=== PATIENT | female | born 1985 | race Caucasian/White ===

== ENCOUNTER 2016-12-26 01:01 | Inpatient (IN) | payer BC ==
--- OUTSIDE RECORDS SUMMARY | 2016-12-26 01:04 | XMS | Clinical Summary ---
:1985 Author Organization [facility] Address [address] [place] [address] Phone Care Team Providers Name Role Phone , Primary Care Provider Unavailable Allergies Not on File Current Medications Not on file Active Problems Not on file Social History Tobacco Use Types Packs/Day Years Used Date Never Assessed Sex Assigned at Date Recorded Not on file Last Filed Vital Signs Not on file Plan of Treatment Not on file Results Not on filefrom Last 3 Months
[2016-12-26] MEDS ORDERED: Bisacodyl 5 MG TAB PO PRN (02:55)
[2016-12-26] MEDS ORDERED: Ondansetron HCl/PF 4 MG/2 ML Vial IVP PRN (02:55)
[2016-12-26] MEDS ORDERED: Acetaminophen 325 MG TAB PO PRN (02:55)
[2016-12-26] MEDS: Sodium Chloride 0.9% 1,000 ML IV SCH ×3 (03:10→23:47)
--- NOTE | 2016-12-26 04:22 | HP ---
PRIMARY CARE PROVIDER: Radha Concepcion M.D. CHIEF COMPLAINT: Nausea and vomiting. HISTORY OF PRESENT ILLNESS: Ms. Jones is a pleasant 31-year-old lady who was seen at [facility] following transfer from [facility] Emergency Department on 12/26/2016. She reports that she has a history of recurrent vomiting. She also reports that she feels thirsty a ll the time. She reports that she had extensive workup in the past, including by Endocrinology, Car diology, and Neurology services, but it cause for her thirst and nausea were not found. She reports that she was eating salt tablets because of intense craving. She reports that most of the times her electrolytes are towards the lower end of normal range. Two weeks ago, she was seen at an urgent care clinic for excessive thirst. Today afternoon, around 3:30 p.m., she developed nausea and vomiting. She reports vomiting multiple times. She denies any blood in the vomitus. She denies any fevers. She reports feeling cold and shaky. She also reports occasional leg cramps, but none today. She denies any chest pain or shortn ess of breath. At the other emergency department, she received intravenous fluids. However, she was very tachycard ic. Her tachycardia did not improve significantly with intravenous fluids. She was therefore trans ferred to this facility. REVIEW OF SYSTEMS: The following complete review of systems was negative, unless otherwise mentione d in the HPI or below: Constitutional: Weight loss or gain, sense of well-being, ability to conduct usual activities, exer cise tolerance. Skin/Breast: Rash, itching, changes in hair growth or loss, nail changes, breast lumps, tenderness, swelling, nipple discharge. Eyes: Vision, double vision, tearing, blind spots, pain. ENT/Mouth: Headaches (location, time of onset, duration, precipitating factors), vertigo, lighthead edness, injury. Vision, double vision, tearing, blind spots, pain, nose bleeding, colds, obstruction , discharge, dental difficulties, gingival bleeding, dentures, neck stiffness, pain, tenderness, mas ses in thyroid or other areas. Cardiovascular: Precordial pain, substernal distress, palpitations, syncope, dyspnea on exertion, o rthopnea, nocturnal paroxysmal dyspnea, edema, cyanosis, hypertension, heart murmurs, varicosities, phlebitis, claudication. Respiratory: Pain, shortness of breath, wheezing, stridor, cough, hemoptysis, fever or night sweats . Gastrointestinal: Poor appetite, dysphagia, indigestion, abdominal pain, heartburn, eructation, eunice sea, vomiting, hematemesis, jaundice, constipation, or diarrhea, abnormal stools (jamie-colored, sumaya y, bloody, greasy, foul smelling), flatulence, hemorrhoids, recent changes in bowel habits. Genitourinary: Urgency, frequency, dysuria, nocturia, hematuria, polyuria, oliguria, unusual (or ch henry in) color of urine, stones, hesitancy, change in size of stream, dribbling, acute retention or incontinence, libido, potency. Musculoskeletal: Pain, swelling, redness or heat of muscles or joints, limitation, of motion, muscu lar weakness, atrophy, cramps. Neurologic/Psychiatric: Convulsions, paralyses, tremor, incoordination, paresthesias, difficulties with memory of speech, sensory or motor disturbances, or muscular coordination (ataxia, tremor), emo tional problems, anxiety, depression, previous psychiatric care, unusual perceptions, hallucinations . Allergy/Immunologic: Skin rash, anemia, bleeding tendency, polydipsia, polyuria, intolerance to hea t or cold. PAST MEDICAL HISTORY: None. PAST SURGICAL HISTORY: Tonsillectomy and foot surgery x2. SOCIAL HISTORY: The patient reports rare alcohol use. She denies tobacco use or recreational drug use. FAMILY HISTORY: Significant for heart disease in her paternal grandfather. ALLERGIES: CODEINE, which causes nausea and vomiting. CURRENT MEDICATIONS: Zofran p.r.n. PHYSICAL EXAMINATION: GENERAL: On examination, Ms. Jones is awake and alert, not in acute distress. VITAL SIGNS: Blood pressure is 106/59, pulse is 108. She is breathing at rate of 18, and saturatin g 97% on room air. Temperature is 99.7 degrees Fahrenheit. EYES: No scleral icterus, no conjunctival pallor. ENT: Dry mucosal membranes, no oropharyngeal erythema or exudates. NECK: Supple, nontender, normal range of movement, trachea is midline. RESPIRATORY: Accessory muscles of breathing are not active. Chest wall movements are symmetric colt aterally. LUNGS: Clear to auscultation without wheeze, rhonchi or crepitations. CARDIOVASCULAR: S1 and S2 are heard, regular. Peripheral pulses are palpable. No carotid bruit, n o pericardial rub. ABDOMEN: Soft, nontender, bowel sounds are heard, no hepatomegaly, no splenomegaly. SKIN: No rashes or subcutaneous nodules. NEUROLOGIC: Cranial nerves II-XII are intact, deep tendon reflexes 2+. MUSCULOSKELETAL: Power is 5/5 in all 4 extremities. Normal range of movement at all major extremit y joints. PSYCHIATRIC: Normal mood, normal affect, patient is oriented to time, place, and person. DATABASE: Ms. Jones' labs and investigations were reviewed. She had an electrocardiogram at the [facility] emergency room, which did not show any ST changes. She did have sinus tachycardia. Laboratory investigations showed sodium 133, potassium 3.7, glucose 128, calcium 9.7, creatinine 0.8 , alkaline phosphatase 38, ALT 16, AST 27, and total bilirubin 1.0. Urinalysis was positive for ket ones and protein. Urine hCG was negative. She had white count of 13,800, hemoglobin 14.3 and plate let count 228,000. ASSESSMENT AND PLAN: Ms. Jones is a pleasant 31-year-old lady who was seen at [facility] on 12/26/2016. Her problem list includes: 1. Nausea and vomiting. Etiology is unclear. She reports having it on and off over many months to years. We will admit her to the hospital and managed with antiemetics. We will obtain records fro m primary care provider's office to find out what has already been done and to guide further investi gations. 2. Dehydration: Provide intravenous fluids. 3. Sinus tachycardia: Her heart rate has actually improved since coming to this facility. We will continue to monitor on telemetry and provide intravenous fluids. 4. Ketonuria: Most likely secondary to starvation. LEVEL OF RISK: Moderate. LEVEL OF COMPLEXITY: Moderate. Many thanks for allowing me to participate in your patient's care. Please feel free to contact me w ith any questions or concerns.
[2016-12-26 06:09] LABS: #Lymphocytes 0.5 thou/uL (1.20-3.40); #Monocytes 0.6 thou/uL (0.11-0.59); #Neutrophils 8.7 thou/uL (1.40-6.50); %Basophils 0.1 % (0.0-1.0); %Eosinophils 0.1 % (0.0-10.0); %Lymphocytes 5.4 % (21.0-51.0); %Monocytes 5.6 % (0.0-10.0); Hematocrit 35.6 % (36.0-47.0); Mean Platelet Volume 6.8 fL (7.4-10.4); Red Blood Cell (RBC) Count 3.84 mill/uL (4.20-5.40); White Blood Cell (WBC) Count 9.8 thou/uL (4.8-10.8)
[2016-12-26 06:33] LABS: Anion Gap 10 mmol/L (10-20); BUN (Urea Nitrogen) 9 mg/dL (7.0-18.7); Calc. Creatinine Clearance 97 mL/min (70-130); Calcium 8.1 mg/dL (7.8-10.44); Carbon Dioxide 25 mmol/L (22-29); Chloride 106 mmol/L (98-107); Estimated GFR-MDRD Greater than 90
[2016-12-26] MEDS ORDERED: FLU VACC QS2017-18 36 mo. & older 0.5 ML SYRINGE IM ONE (09:00)
[2016-12-26] MEDS: Enoxaparin Sodium 40 MG/0.4 ML SYRINGE SC SCH (09:11)
--- NOTE | 2016-12-26 12:17 | PDOC.PN ---
- Subjective Encounter Start Date: 12/26/16 Encounter Start Time: 12:00 Subjective: f/u for N/V and dehydration tx with IVF's. Pt states the emesis resolved -: and is wanting to eat. No diarrhea, fever. Some tachycardia on tele. - Objective MAR Reviewed: Yes Vital Signs & Weight: Vital Signs (12 hours) Temp Pulse Resp BP Pulse Ox 12/26/16 08:00 99.3 F 103 H 14 101/58 L 95 12/26/16 06:00 91/50 L 12/26/16 03:31 98.6 F 99 16 98 12/26/16 01:15 99.7 F H 108 H 18 106/59 L 97 Weight Weight 115 lb 4.8 oz I&O: 12/25/16 12/26/16 12/27/16 06:59 06:59 06:59 Intake Total 450 Output Total 500 Balance -50 Result Diagrams: 12/26/16 05:24 12/26/16 05:24 EKG Reviewed by me: Yes (Tele - Sinus tachycardia) Phys Exam - Physical Examination Constitutional: NAD alert, responsive HEENT: PERRLA, oral pharynx no lesions Neck: no JVD, supple Respiratory: no wheezing, clear to auscultation bilateral tachycardic Cardiovascular: RRR Gastrointestinal: soft, non-tender, no distention, positive bowel sounds Musculoskeletal: no edema, pulses present Neurological: normal sensation, moves all 4 limbs Psychiatric: A&O x 3 Skin: normal turgor, cap refill <2 seconds Dx/Plan (1) Nausea and vomiting Code(s): R11.2 - NAUSEA WITH VOMITING, UNSPECIFIED Status: Acute Comment: Resolved, antiemetics prn, continue IVF's another 24h then d/c (2) Dehydration Code(s): E86.0 - DEHYDRATION Status: Acute Comment: Resolved (3) Sinus tachycardia Code(s): R00.0 - TACHYCARDIA, UNSPECIFIED Status: Acute Comment: Suspect volume related, check TSH and FT4 - Plan Stable overall -: Continue supportive measures -: Start Regular Diet -: Continue IVF's another 24h -: AM lab: CBC, Mg++, PO3 * Likely home in am
[2016-12-27 06:19] LABS: #Basophils 0.1 thou/uL (0.0-0.2); #Eosinphils 0.1 thou/uL (0.0-0.7); #Monocytes 0.4 thou/uL (0.11-0.59); #Neutrophils 2.5 thou/uL (1.40-6.50); %Basophils 1.6 % (0.0-1.0); %Eosinophils 2.6 % (0.0-10.0); %Lymphocytes 24.4 % (21.0-51.0); %Monocytes 10.4 % (0.0-10.0); Hematocrit 32.4 % (36.0-47.0); Mean Platelet Volume 6.9 fL (7.4-10.4); Red Blood Cell (RBC) Count 3.45 mill/uL (4.20-5.40); White Blood Cell (WBC) Count 4.1 thou/uL (4.8-10.8)
[2016-12-27 06:33] LABS: Band 5 % (5-11); Neutrophil 63 % (42-75); White Blood Cell (WBC) Count 3.8 thou/uL (4.8-10.8)
[2016-12-27 06:36] VITALS: BMI 20.7
[2016-12-27 06:40] LABS: Anion Gap 10 mmol/L (10-20); BUN (Urea Nitrogen) 7 mg/dL (7.0-18.7); Calc. Creatinine Clearance 104 mL/min (70-130); Calcium 8.1 mg/dL (7.8-10.44); Carbon Dioxide 22 mmol/L (22-29); Chloride 109 mmol/L (98-107); Estimated GFR-MDRD Greater than 90; Magnesium 1.6 mg/dL (1.6-2.6); Phosphorus 2.2 mg/dL (2.3-4.7)
[2016-12-27] MEDS: Sodium Chloride 0.9% 1,000 ML IV SCH (10:14)
[2016-12-27] MEDS: Enoxaparin Sodium 40 MG/0.4 ML SYRINGE SC SCH (10:14)
[2016-12-27 11:27] VITALS: BP 114/74; TEMP 99.3
--- NOTE | 2016-12-27 11:31 | DIS ---
DATE OF ADMISSION: 12/26/2016 DATE OF DISCHARGE: 12/27/2016 DISCHARGE DIAGNOSES: 1. Nausea and vomiting, unclear etiology, resolved. 2. Dehydration, resolved. 3. Sinus tachycardia, stable. 4. Question of psychogenic polydipsia. CONSULTATIONS: None. PERTINENT LABORATORY DATA AND X-RAY FINDINGS: Basic metabolic profile within normal limits. Phosph orus 2.2, magnesium 1.6. TSH 2.05. Free T4 0.82. CBC showed hemoglobin ranged between 10.7-11.7, MCV 94. HOSPITAL COURSE: Patient was initially admitted after presenting with protracted nausea, vomiting, and dehydration requiring intravenous fluids. The patient apparently had multiple episodes of emesi s presenting to the emergency room for evaluation. The patient was noted with sinus tachycardia wit h associated dehydration and continued on intravenous fluids and monitored clinically. Metabolic an alysis showed essentially negative findings without evidence of associated electrolyte disturbance o r abnormalities. The patient's symptoms resolved with IV fluid hydration and antiemetics, transitio maxwell to oral intake without difficulty. Exact etiology of the presentation unclear with questionabl e psychogenic polydipsia component. Current recommendations are for a 24-hour strict intake and out put analysis with urine and serum osmolality assessment, which can be undertaken on an outpatient ba sis. Overall, the patient remained clinically stable through the remainder of the hospital course a nd ready for discharge on 12/27/2016. DISCHARGE MEDICATIONS: None. FOLLOWUP: The patient may follow up with her primary care provider, Dr. Concepcion at [facility] within 7 days of discharge. CONDITION ON DISCHARGE: Stable. ACTIVITY: Ad tre. DIET: Regular. CODE STATUS: FULL. DISPOSITION: Home, 12/27/2016.
== END 2016-12-27 12:16 | disposition home or self-care (01) | DRG 641 ==
LOC: 2NO 01:01
PROVIDERS: ADMIT Internal Medicine; ATTEND Internal Medicine
DX: E86.0 Dehydration (principal); R63.1 Polydipsia; R00.0 Tachycardia, unspecified; R11.2 Nausea with vomiting, unspecified; R82.4 Acetonuria
CPT/HCPCS: 36415; 80048; 83735; 84100; 84439; 84443; 85025; 90471; 90682; G0008; J1650; J2405; Q2036